=== PATIENT | male | born 1995 | race Caucasian/White ===

== ENCOUNTER 2018-01-23 22:02 | Emergency (ER) | payer OTHER ==
--- NOTE | 2018-01-23 23:16 | EDPHY ---
H & P Stated Complaint: fell and hit head no LOC Time Seen by Provider: 01/23/18 23:16 HPI/ROS: HPI CHIEF COMPLAINT: Head trauma, fall HISTORY OF PRESENT ILLNESS: Very pleasant 22-year-old male, not intoxicated, presents emergency room after he fell during the football game this evening. Patient is brought in by private vehicle with his mom and dad at bedside. He was pulling on the [place], and tripped and fell. He fell forward. With head strike. With facial strike. No LOC. Immediately got off however he continues to have a frontal headache and frontal facial pain. Denies any chest pain or shortness of breath. Past Medical History: No significant medical history Past Surgical History: No significant surgical history Social History: Denies drugs alcohol tobacco. [employer] student. Mom and dad at bedside. Family History: Noncontributory. ROS REVIEW OF SYSTEMS: 10 Systems were reviewed and negative with the exception of the elements mentioned in the history of present illness. Exam Constitutional triage nursing summary reviewed, vital signs reviewed, awake/ alert. Eyes normal conjunctivae and sclera, EOMI, PERRLA. HENT head/neck/Face: Atraumatic exam except mild tender palpation over the forehead. Middle forehead. No significant hematoma. Dentition intact. No malocclusion. Midface stable, no crepitus, normal inspection, atraumatic, moist mucus membranes, no epistaxis, neck supple/ no meningismus, no raccoon eyes. Respiratory clear to auscultation bilaterally, normal breath sounds, no respiratory distress, no wheezing. Cardiovascular rate normal, regular rhythm, no murmur, no edema, distal pulses normal. Gastrointestinal soft, non-tender, no rebound, no guarding, normal bowel sounds, no distension, no pulsatile mass. Genitourinary no CVA tenderness. Musculoskeletal no midline vertebral tenderness, full range of motion, no calf swelling, no tenderness of extremities, no meningismus, good pulses, neurovascularly intact. Skin pink, warm, & dry, no rash, skin atraumatic. Neurologic awake, alert and oriented x 3, AAOx3, moves all 4 extremities equally, motor intact, sensory intact, CN II-XII intact, normal cerebellar, normal vision, normal speech. Psychiatric normal mood/affect. Heme/Lymph/Immune no lymphadenopathy. Differential Diagnosis: Includes but is not limited to in a particular order closed-head injury, intracranial bleed, subdural, epidural, traumatic subarachnoid, concussion, facial fracture, dentition fracture Medical Decision Making: Plan for this patient ibuprofen 800 mg for pain control here. CT scan head without contrast maxillofacial without contrast for trauma. Re-evaluation: CT scan head without contrast negative for acute intracranial bleed CT scan maxillofacial without contrast: She is a nasal bone fracture otherwise unremarkable. Called to me by Dr. Trivedi [id number]: Patient re-evaluated this time resting comfortably no acute distress. Safe for discharge. Patient and parents updated at bedside. Comfortable this plan. ENT follow-up as needed. Source: Patient - Personal History Current Tetanus/Diphtheria Vaccine: Unsure Current Tetanus Diphtheria and Acellular Pertussis (TDAP): Unsure - Medical/Surgical History Hx Asthma: No Hx Chronic Respiratory Disease: No Hx Diabetes: No Hx Cardiac Disease: No Hx Renal Disease: No Hx Cirrhosis: No Hx Alcoholism: No Hx HIV/AIDS: No Hx Splenectomy or Spleen Trauma: No Other PMH: hernia surgery - Social History Smoking Status: Never smoked Constitutional: Initial Vital Signs Temperature (C) 36.7 C 01/23/18 22:06 Heart Rate 68 01/23/18 22:06 Respiratory Rate 16 01/23/18 22:06 Blood Pressure 131/64 H 01/23/18 22:06 O2 Sat (%) 95 01/23/18 22:06 O2 Delivery Mode Room Air Allergies/Adverse Reactions: Penicillins Allergy (Verified 01/23/18 22:08) Home Medications: Medication Instructions Recorded NK [No Known Home Meds] 01/23/18 Medical Decision Making - Data Points Medications Given: Discontinued Medications Ibuprofen (Motrin) 800 mg PO EDNOW ONE Stop: 01/23/18 23:21 Last Admin: 01/23/18 23:25 Dose: 800 mg Departure - Departure Disposition: Home, Routine, Self-Care Clinical Impression: Closed head injury, Concussion, Nasal bone fracture Condition: Good Instructions: Concussion (ED), Head Injury (ED), Nasal Fracture (ED) Additional Instructions: 1. Rest over the next 72 hr. 2. Stay well-hydrated. 3. Alternate Tylenol and Motrin for pain control. 4. Follow-up with concussion specialist as needed. Referrals: TEENA GARCIA [Other] - As per Instructions Palmira Byers MD [Medical Doctor] - As per Instructions Barbara Russell MD [Medical Doctor] - As per Instructions
[2018-01-23] MEDS ORDERED: IBUPROFEN 800 MG TAB PO ONE (23:20)
[2018-01-24 00:57] VITALS: BP 148/89
== END 2018-01-24 00:59 | disposition home or self-care (01) ==
DX: S06.0X0A Concussion without loss of consciousness, initial encounter (principal); S02.2XXA Fracture of nasal bones, initial encounter for closed fracture; W01.0XXA Fall on same level from slipping, tripping and stumbling without subsequent striking against object, initial encounter; Y93.83 Activity, rough housing and horseplay; Y92.321 Football field as the place of occurrence of the external cause; Y99.8 Other external cause status